=== PATIENT | male | born 1960 | race Caucasian/White ===

== ENCOUNTER 2017-06-24 09:19 | Outpatient (CLI) | payer OTHER ==
[2017-06-24 20:07] LABS: CHOL/HDL RATIO 4.7 (<5.0); CHOLESTEROL 214 mg/dL; HDL CHOLESTEROL 46 mg/dL; LDL/HDL RATIO 3.3 (<3.6); TRIGLYCERIDES 91 mg/dL; VLDL CHOLESTEROL 18 mg/dL
== END 2017-06-24 09:20 | disposition home or self-care (01) ==
LOC: LAB.F 09:19
PROVIDERS: ATTEND Internal Medicine
DX: E78.00 Pure hypercholesterolemia, unspecified (principal); Z13.9 Encounter for screening, unspecified
CPT/HCPCS: 36415; 80061; 86735; 86762; 86765

== ENCOUNTER 2017-08-22 06:15 | Emergency (ER) | payer OTHER ==
--- NOTE | 2017-08-22 07:18 | CT Preliminary Report ---
Exam: CT HEAD W/O IMPRESSION: No acute intracranial abnormality. Left maxillary sinusitis, complete left maxillary sinu s opacification. [facility] SITE ID: [id number]
--- NOTE | 2017-08-22 07:20 | ED Physician Documentation ---
History of Present Illness - Stated complaint Stated Complaint: GLF - Chief complaint Chief Complaint: Neuro - Additonal information Additional information: hx from pt slipped and fell this AM hit head no LOC has spotty amnesia to the event no neck pain no numbness no [place] no [place] no blood thinners mild HASSAN otherwise well CTH ordered prior to day shift and pending Review of Systems Constitutional: denies: Fever Ears: denies: Drainage/discharge Nose: denies: Epistaxis Cardiac: denies: Chest pain / pressure GI: denies: Abdominal Pain, Nausea, Vomiting Neurologic: reports: Headache, Head injury. denies: Focal weakness, Numbness, LOC Endocrine: denies: Easy bruising / bleeding Immunocompromised: denies: Immunocompromised PD PAST MEDICAL HISTORY - Past Medical History Cardiovascular: None Respiratory: Asthma GI: GERD - Past Surgical History Past Surgical History: No - Present Medications Home Medications: Ambulatory Orders Medication Instructions Recorded Confirmed Albuterol [Proventil Hfa] 1 puffs INH ONCE PRN 08/06/13 08/22/17 - Allergies Allergies/Adverse Reactions: Allergies Allergy/AdvReac Type Severity Reaction Status Date / Time No Known Drug Allergies Allergy Verified 08/22/17 06:25 - Social History Does the pt smoke?: No Smoking Status: Never smoker Does the pt drink ETOH?: No Does the pt have substance abuse?: No - Immunizations Immunizations are current?: Yes - POLST Patient has POLST: No PD ED PE NORMAL - Vitals Vital signs reviewed: Yes - General General: Alert and oriented X 3, Other (but has spotty memory of this AMs fall) - HEENT HEENT: Atraumatic, PERRL, EOMI, Other (no maxillary sinus TTP) - Neck Neck: No bony TTP - Cardiac Cardiac: RRR - Respiratory Respiratory: No respiratory distress, Clear bilaterally - Derm Derm: Normal color - Neuro Neuro: Alert and oriented X 3, adzing and boring machine feeder 2-12 intact, No motor deficit, No sensory deficit, Other (GCS 15) Results - Vitals Vitals: Vital Signs - 24 hr 08/22/17 06:19 Temperature 36.1 C L Heart Rate 61 Respiratory 15 Rate Blood Pressure 155/99 H O2 Saturation 100 Oxygen O2 Source Room air - Rads (name of study) CTH Radiology: See rad report (no acute, L maxillary sinusitis) PD MEDICAL DECISION MAKING - ED course ED course: CTH no acute pt and 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 You left maxillary sinus looks congested however so I suggest you use some flonase and sinus irrigation to clear that out Please follow up with your PMD to get your blood pressure rechecked - it was high today Forms: Activity restrictions
--- NOTE | 2017-08-22 07:21 | CT Report ---
EXAM: CT HEAD EXAM DATE: 08/22/2017 06:51 AM. CLINICAL HISTORY: Fall. Possible loss of consciousness. Amnesia. COMPARISON: No prior CT. Brain MRI correlation 12/03/2008. TECHNIQUE: Multiaxial CT images were obtained from the foramen magnum to the vertex. IV contrast: Non e. Reformats: Coronal. In accordance with CT protocol optimization, one or more of the following dose reduction techniques w ere utilized for this exam: automated exposure control, adjustment of mA and/or KV based on patient s ize, or use of iterative reconstructive technique. FINDINGS: Normal brain volume for age. No acute intracranial hemorrhage or skull fracture. No hydrocephalus, ma ss effect or midline shift. No evidence for acute ischemic infarct. Complete opacification of the left maxillary sinus has developed in the interval. Mild left ethmoid m ucosal thickening. Clear mastoids. IMPRESSION: No acute intracranial abnormality. Left maxillary sinusitis, complete left maxillary sinu s opacification. [facility] Referring Provider Line: [phone] SITE ID: [id number]
[2017-08-22 07:38] VITALS: BP 113/95
== END 2017-08-22 07:39 | disposition home or self-care (01) ==
LOC: EDUNIT# → ED 06:15
DX: S06.0X0A Concussion without loss of consciousness, initial encounter (principal); W01.0XXA Fall on same level from slipping, tripping and stumbling without subsequent striking against object, initial encounter
CPT/HCPCS: 70450; 99283

== ENCOUNTER 2022-12-06 10:28 | Outpatient (CLI) | payer OTHER ==
[2022-12-06 14:49] LABS: BASOPHILS % (AUTO) 0.6 %; EOSINOPHILS # (AUTO) 0.3 10^3/uL (0.0-0.7); EOSINOPHILS % (AUTO) 6.5 %; HCT - HEMATOCRIT 45.3 % (42.0-52.0); HGB - HEMOGLOBIN 14.9 g/dL (14.0-18.0); LYMPHOCYTES # (AUTO) 1.8 10^3/uL (1.5-3.5); LYMPHOCYTES % (AUTO) 36.5 %; MEAN CORPUSCULAR HEMOGLOBIN 31.5 pg (27.0-31.0); MEAN CORPUSCULAR HGB CONC 32.9 g/dL (32.0-36.0); MEAN CORPUSCULAR VOLUME 95.8 fL (80.0-94.0); MEAN PLATELET VOLUME 10.9 fL (7.4-11.4); MONOCYTES # (AUTO) 0.5 10^3/uL (0.0-1.0); MONOCYTES % (AUTO) 10.6 %; NEUTROPHILS # (AUTO) 2.2 10^3/uL (1.5-6.6); NEUTROPHILS % (AUTO) 45.6 %; PLT - PLATELET COUNT 233 10^3/uL (130-450); RED BLOOD COUNT 4.73 10^6/uL (4.70-6.10); RED CELL DISTRIBUTION WIDTH 12.7 % (12.0-15.0); WHITE BLOOD COUNT 4.8 x10^3/uL (4.8-10.8)
[2022-12-06 15:11] LABS: ALBUMIN 3.9 g/dL (3.2-5.5); ALBUMIN/GLOBULIN RATIO 1.1 (1.0-2.2); ALKALINE PHOSPHATASE 59 IU/L (42-121); ALT ALANINE AMINOTRANSFERASE 27 IU/L (10-60); AST ASPARTATE AMINOTRANSFERASE 28 IU/L (10-42); BILIRUBIN,TOTAL 0.9 mg/dL (0.2-1.0); BUN - BLOOD UREA NITROGEN 17 mg/dL (6-20); CALCIUM 9.4 mg/dL (8.5-10.3); CARBON DIOXIDE - CO2 25 mmol/L (21-32); CHLORIDE 106 mmol/L (101-111); CHOL/HDL RATIO 3.8 (<5.0); CHOLESTEROL 199 mg/dL; CREATININE 0.8 mg/dL (0.6-1.2); GFR - MDRD 97 (>89); GLUCOSE 100 mg/dL (70-100); HDL CHOLESTEROL 52 mg/dL; LDL CHOLESTEROL,CALCULATED 129 mg/dL; LDL/HDL RATIO 2.5 (<3.6); POTASSIUM 4.5 mmol/L (3.5-5.0); SODIUM 137 mmol/L (135-145); TOTAL PROTEIN 7.3 g/dL (6.7-8.2); TRIGLYCERIDES 88 mg/dL; VLDL CHOLESTEROL 18 mg/dL
[2022-12-06 15:18] LABS: THYROID STIMULATING HORMONE 2.05 uIU/mL (0.34-5.60)
== END 2022-12-06 10:29 | disposition home or self-care (01) ==
LOC: LAB.S 10:28
PROVIDERS: ATTEND Registered Nurse
DX: E78.00 Pure hypercholesterolemia, unspecified (principal); Z79.899 Other long term (current) drug therapy; Z12.5 Encounter for screening for malignant neoplasm of prostate; Z13.29 Encounter for screening for other suspected endocrine disorder
CPT/HCPCS: 36415; 80050; 80061; 83721; 84153

== ENCOUNTER 2023-03-23 08:45 | Day surgery (SDC) | payer MEDICARE, OTHER ==
[2023-03-23] MEDS ORDERED: LACTATED RINGERS 1,000 ML IV ONE ×2 (09:10→10:25)
[2023-03-23] MEDS ORDERED: PROPOFOL 500 MG/50 ML 500 MG/50 ML VIAL ONE (09:39)
--- NOTE | 2023-03-23 09:40 | ANESTHESIA ---
Pre-Anesthesia VS, & Labs - Diagnosis screening colonoscopy - Procedure colonoscopy Height: 6 ft 2 in Weight (kg): 91.8 kg Body Mass Index: 25.9 BMI Classification: Overweight - NPO Other (prep as directed) Home Medications and Allergies Albuterol [Proventil Hfa] 1 puffs INH ONCE PRN 08/06/13 Allergies/Adverse Reactions: Allergies Allergy/AdvReac Type Severity Reaction Status Date / Time No Known Drug Allergies Allergy Verified 03/22/23 12:40 Anes History & Medical History - Anesthetic History Anesthesia Complications: reports: No previous complications - Medical History Cardiovascular: reports: None Pulmonary: reports: Asthma Gastrointestinal: reports: GERD Smoking Status: Never smoker - Surgical History General: reports: Colonoscopy Exam General: Alert, Oriented x3 Dental: WNL Mouth Opening: Greater than 4 Fingerbreadths Mallampati classification: II Thyromental Distance: less than 4 cm Respiratory: Lungs clear Cardiovascular: Regular rate, Normal S1, Normal S2 Plan Anesthesia Type: Total IV Consent for Procedure(s) Verified and Reviewed: Yes Code Status: Attempt Resuscitation ASA classification: 2-Mild systemic disease Is this case an emergency?: No
--- NOTE | 2023-03-23 10:49 | ANESTHESIA POST OP EVALUATION ---
Anesthesia Post Eval - Post Anesthesia Eval Vitals: Last Vital Signs Temp 36.2 C L 03/23/23 10:26 Pulse 46 L 03/23/23 10:43 Resp 14 03/23/23 10:43 BP 115/64 03/23/23 10:43 Pulse Ox 99 03/23/23 10:43 O2 Flow Rate CV Function Including HR & BP: Stable Pain Control: Satisfactory Nausea & Vomiting: Negative Mental Status: Baseline Respiratory Status: Airway Patent Hydration Status: Satisfactory Anesthesia Complications: None
[2023-03-23 11:24] VITALS: BP 137/77
== END 2023-03-23 08:46 | disposition home or self-care (01) ==
LOC: SDS 08:45
PROVIDERS: ATTEND Surgery
DX: Z12.11 Encounter for screening for malignant neoplasm of colon (principal); K64.1 Second degree hemorrhoids; J45.909 Unspecified asthma, uncomplicated; Z86.010 Personal history of colon polyps; Z87.891 Personal history of nicotine dependence
CPT/HCPCS: G0105; J7120

== ENCOUNTER 2023-08-01 19:02 | Emergency (ER) | payer MEDICARE, OTHER ==
[2023-08-01 19:11] VITALS: BP 155/86; O2SAT 97
[2023-08-01] MEDS ORDERED: DOXYCYCLINE 100 MG TABLET PO STA (19:54)
--- NOTE | 2023-08-01 19:59 | ED Physician Documentation ---
History of Present Illness - Stated complaint Stated Complaint: TICK BITE - Chief complaint Chief Complaint: Wound - Additonal information Additional information: 63-year-old male here for tick bite on his right arm. He pulled a tick off the right forearm this evening about 6 PM. He would like treatment for Lyme prophylaxis. No history of similar in the past. Patient does present with what appears to be a tick in a folded paper towel Review of Systems Cardiac: denies: Chest pain / pressure : reports: Reviewed and negative Skin: reports: Bite / sting Musculoskeletal: reports: Reviewed and negative PD PAST MEDICAL HISTORY - Past Medical History Cardiovascular: None Respiratory: Asthma GI: GERD - Past Surgical History Past Surgical History: No General: Colonoscopy - Present Medications Home Medications: Ambulatory Orders Medication Instructions Recorded Confirmed Albuterol [Proventil Hfa] 1 puffs INH ONCE PRN 08/06/13 08/01/23 - Allergies Allergies/Adverse Reactions: Allergies Allergy/AdvReac Type Severity Reaction Status Date / Time No Known Drug Allergies Allergy Verified 03/22/23 12:40 - Social History Does the pt smoke?: No Smoking Status: Never smoker Does the pt drink ETOH?: No Does the pt have substance abuse?: No - Immunizations Immunizations are current?: Yes - POLST Patient has POLST: No PD ED PE NORMAL - General General: Alert and oriented X 3, No acute distress - Cardiac Cardiac: RRR, No murmur - Respiratory Respiratory: Clear bilaterally - Abdomen Abdomen: Normal bowel sounds, Soft, Non tender, Non distended - Derm Derm: Other (She is doing okay she is anxious to right dorsum of the forearm with a superficial bite no surrounding erythema.) Results - Vitals Vitals: Vital Signs - 24 hr 08/01/23 19:06 Temperature 36.5 C Heart Rate 62 Respiratory 16 Rate Blood Pressure 155/86 H O2 Saturation 97 Oxygen O2 Source Room air PD Medical Decision Making - ED course Complexity details: d/w patient ED course: Six 3-year-old male presents emergency department for evaluation of a right forearm tick bite. Pulled the tick off about 6 PM. He just noticed it today and is certain it was not there this AM. He is requesting Lyme prophylaxis. As such we will give him a single dose of doxycycline 200 mg. He is discharged home in stable condition usual emergent return precautions discussed Departure - Departure Disposition: Home, Self Care Clinical Impression: Tick bite Qualifiers: Encounter type: initial encounter Site of tick bite: forearm Laterality: right Qualified Code(s): S50.861A - Insect bite (nonvenomous) of right forearm, initial encounter; W57.XXXA - Bitten or stung by nonvenomous insect and other nonvenomous arthropods, initial encounter Condition: Stable Record reviewed to determine appropriate education?: Yes Instructions: ED Facts Tick, ED Bite Tick Abx Tx Comments: You had a tick bite you on your right forearm which you successfully removed around 6 PM today. We are giving you a single one-time dose of an antibiotic called doxycycline. You received 200 mg. This is typically sufficient for prophylaxis to prevent Lyme infection after a single tick bite that its been in place for less than 36 hours. Please discuss this ED visit with your primary care doctor. Return to the ER if you develop any new symptoms or have a target- like rash over the next several weeks or months
== END 2023-08-01 20:16 | disposition home or self-care (01) ==
LOC: ED 19:02
DX: S50.861A Insect bite (nonvenomous) of right forearm, initial encounter (principal); W57.XXXA Bitten or stung by nonvenomous insect and other nonvenomous arthropods, initial encounter
CPT/HCPCS: 99282; 99283; A9270